=== PATIENT | male | born 1960 | race Caucasian/White ===

== ENCOUNTER 2022-06-07 08:19 | Observation (INO) | payer MEDICARE ==
[2022-06-07] MEDS ORDERED: fentaNYL 100 MCG/2 ML SDV IVPUSH ONE ×2 (09:12→10:46)
[2022-06-07] MEDS: Sodium Chloride 0.9% 10 ML Syringe FLUSH PRN ×5 (09:16→23:15)
[2022-06-07] MEDS: Sodium Chloride 0.9% 1,000 ML IV SCH ×2 (09:17→10:40)
[2022-06-07 09:30] LABS: ESTIMATED GFR 63 mL/min (>60)
[2022-06-07] MEDS: metroNIDAZOLE/Normal Saline 500 MG in Premix Bag 1 BAG IV SCH ×2 (10:03→17:30)
[2022-06-07] MEDS: Ciprofloxacin in D5W 400 MG in Premix Bag 1 BAG IV SCH ×4 (11:20→23:33)
[2022-06-07] MEDS ORDERED: HYDROmorphone 2 MG/ML SDV IVPUSH PRN (11:39)
[2022-06-07] MEDS: Dextrose 5%-0.9% NaCl with KCl 1,000 ML IV SCH ×2 (11:56→22:54)
[2022-06-07] MEDS ORDERED: Ondansetron 4 MG/2 ML SDV IVPUSH SCH (12:00)
[2022-06-07] MEDS ORDERED: Iopamidol 755 Mg/ML 100 ML Bottle IV ONE (12:00)
[2022-06-07] MEDS: Ondansetron 4 MG/2 ML SDV IVPUSH PRN (17:10)
[2022-06-07] MEDS: HYDROmorphone 2 MG/ML SDV IVPUSH PRN ×2 (17:11→21:25)
[2022-06-07] MEDS: Ketorolac 30 MG/ML SDV IVPUSH SCH ×2 (17:19→23:15)
[2022-06-08] MEDS: metroNIDAZOLE/Normal Saline 500 MG in Premix Bag 1 BAG IV SCH (02:08)
[2022-06-08] MEDS: Sodium Chloride 0.9% 10 ML Syringe FLUSH PRN ×7 (03:00→23:11)
[2022-06-08] MEDS: HYDROmorphone 2 MG/ML SDV IVPUSH PRN ×5 (03:01→22:01)
[2022-06-08] MEDS: Ketorolac 30 MG/ML SDV IVPUSH SCH ×4 (05:36→23:08)
[2022-06-08 07:15] LABS: ESTIMATED GFR 76 mL/min (>60)
[2022-06-08] MEDS: Ondansetron 4 MG/2 ML SDV IVPUSH PRN (07:29)
[2022-06-08] MEDS: Dicyclomine 10 MG Cap PO SCH ×3 (11:07→20:08)
[2022-06-08] MEDS: Dextrose 5%-0.9% NaCl with KCl 1,000 ML IV SCH (11:14)
[2022-06-09] MEDS: HYDROmorphone 2 MG/ML SDV IVPUSH PRN ×3 (02:04→10:15)
[2022-06-09] MEDS: Sodium Chloride 0.9% 10 ML Syringe FLUSH PRN ×7 (02:05→10:16)
[2022-06-09] MEDS: Ketorolac 30 MG/ML SDV IVPUSH SCH (04:51)
[2022-06-09] MEDS: Dicyclomine 10 MG Cap PO SCH (06:44)
== END 2022-06-09 10:33 | disposition home or self-care (01) ==
LOC: FB.ED 08:19 → FB.MS 10:10
PROVIDERS: ADMIT Family Medicine; ATTEND Family Medicine
DX: K57.30 Diverticulosis of large intestine without perforation or abscess without bleeding (principal); G35 Multiple sclerosis; R10.32 Left lower quadrant pain; K86.89 Other specified diseases of pancreas; Z79.899 Other long term (current) drug therapy
CPT/HCPCS: 36415; 71260; 74177; 80053; 81001; 82150; 82272; 83605; 83690; 85025; 86140; 96361; 96365; 96366; 96367; 96374; 96375; 96376; 99285-25; A9270-GY; G0378; J0744; J1170; J1885; J2405; J3010; J3480; J3490; J7030; Q9967